=== PATIENT | female | born 1950 | race American Indian/Alaskan Native ===

== ENCOUNTER 2017-01-13 12:09 | Emergency (ER) | payer MEDICARE ==
[2017-01-13 13:20] VITALS: BP 153/100
[2017-01-13 13:45] LABS: Basophils % (Auto) 0.9 % (0.0-1.8); Eosinophils % (Auto) 2.5 % (0.0-4.3); Hematocrit 33.3 % (30.3-42.9); Mean Corpuscular HGB Conc 33 % (30-34); Mean Corpuscular Hemoglobin 31 pg (28-32); Mean Corpuscular Volume 94 fl (79-97); Platelet Count 311 K/mm3 (140-440); Red Blood Count 3.53 M/mm3 (3.65-5.03); Red Cell Distribution Width 15.4 % (13.2-15.2); White Blood Count 6.4 K/mm3 (4.5-11.0)
[2017-01-13 14:00] LABS: Alanine Aminotransferase 59 units/L (7-56); Albumin 3.4 g/dL (3.9-5); Albumin/Globulin Ratio 0.8 %; Alkaline Phosphatase 482 units/L (35-129); Anion Gap 21 mmol/L; BUN/Creatinine Ratio 12.85; Bilirubin,Total 0.5 mg/dL (0.1-1.2); Blood Urea Nitrogen 9 mg/dL (7-17); Carbon Dioxide 20 mmol/L (22-30); Chloride 101.6 mmol/L (98-107); Glucose 251 mg/dL (65-100); Lipase 17 units/L (13-60); Sodium 138 mmol/L (137-145); Total Protein 7.8 g/dL (6.3-8.2)
[2017-01-13 16:03] LABS: Bacteria,Urine 2+ /HPF (Negative); Bilirubin,Urine NEG (Negative); Blood,Urine NEG (Negative); Ketones,Urine NEG (Negative); Leukocyte Esterase,Urine MOD (Negative); Mucus,Urine FEW /HPF; Nitrite,Urine NEG (Negative)
--- NOTE | 2017-01-17 18:54 | ED Elopement Review ---
ED Pt Elopement review - Results review Lab results: Laboratory Tests 01/13/17 01/13/17 01/13/17 13:24 13:24 15:30 WBC 6.4 RBC 3.53 L Hgb 11.0 Hct 33.3 MCV 94 MCH 31 MCHC 33 RDW 15.4 H Plt Count 311 Lymph % (Auto) 33.2 [place] % (Auto) 8.9 H Eos % (Auto) 2.5 Baso % (Auto) 0.9 Lymph # 2.1 [place] # 0.6 Eos # 0.2 Baso # 0.1 Seg Neutrophils % 54.5 Seg Neutrophils # 3.5 Sodium 138 Potassium 5.0 Chloride 101.6 Carbon Dioxide 20 L Anion Gap 21 BUN 9 Creatinine 0.7 Estimated GFR > 60 BUN/Creatinine Ratio 12.85 Glucose 251 H Calcium 9.0 Total Bilirubin 0.5 AST 88 H ALT 59 H Alkaline Phosphatase 482 H Total Protein 7.8 Albumin 3.4 L Albumin/Globulin Ratio 0.8 Lipase 17 Urine Color Yellow Urine Turbidity Slightly-cloudy Urine pH 5.0 Ur Specific [place] 1.012 Urine Protein 30 mg/dl Urine Glucose (UA) Neg Urine Ketones Neg Urine Blood Neg Urine Nitrite Neg Urine Bilirubin Neg Urine Urobilinogen 2.0 Ur Leukocyte Esterase Mod Urine WBC (Auto) 109.0 H Urine RBC (Auto) 3.0 U Epithel Cells (Auto) 2.0 Urine Bacteria (Auto) 2+ Urine Mucus Few - Call Back decision Pt Call Back Decision: Pt to F/U with PMD (patient should be called and notified that she has a significant urinary tract infection possibly a kidney infection. She should also be notified that her LFTs are abnormal. She should follow up with her primary physician for further evaluation or return to the emergency department if she does not have a physician)
== END 2017-01-13 18:57 | disposition left against medical advice (07) ==
LOC: ED 12:09
DX: R10.30 Lower abdominal pain, unspecified (principal); R11.0 Nausea; Z53.21 Procedure and treatment not carried out due to patient leaving prior to being seen by health care provider
CPT/HCPCS: 36415; 80053; 81001; 83690; 85025